=== PATIENT | female | born 1995 | race Caucasian/White ===

== ENCOUNTER 2017-02-15 22:27 | Emergency (ER) | payer SELFPAY ==
[~2017-02-15] VITALS: Ht 167.6 cm; Wt 59.0 kg
--- NOTE | 2017-02-15 22:51 | ED Lower Extremity ---
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 Nursing Sepsis Screen: No Definite Risk Source: patient History of Present Illness Time seen by provider: 22:44 Initial Comments C/O RIGHT KNEE PAIN AND SWELLING SINCE WAKING YESTERDAY MORNING NO KNOWN INJURY, BUT DID GO BOWLING THE NIGHT BEFORE NO PARESTHESIAS OR MOTOR DEFICITS NO PRIOR PROBLEMS WITH KNEE HAS NOT TAKEN ANYTHING FOR PAIN LMP 2 WEEKS AGO, NORMAL, NO CONTROL NO PCP Allergies and Home Medications Allergies Coded Allergies: No Known Drug Allergies (Unverified , 02/15/17) Home Medications Ibuprofen 800 Mg Tablet, 800 MG PO Q6H PRN for PAIN, #20 Prescribed by: JULIETTE WIGGINS on 02/15/17 2323 Tramadol HCl 50 Mg Tablet, 50 MG PO Q4H, #20 Prescribed by: JULIETTE WIGGINS on 02/15/17 2323 Constitutional: no symptoms reported : No LMP: Feb 01, 2017 Control/STD Prophylaxis: None Musculoskeletal: see HPI, joint pain, joint swelling Skin: no symptoms reported Psychiatric/Neurological: No Symptoms Reported Past Bpxucvj-Byjnzv-Fghxgn Hx Patient Social History Alcohol Use: Denies Use Recreational Drug Use: No Smoking Status: Never a Smoker Type Used: Cigarettes Recent Foreign Travel: No Contact w/Someone Who Travel: No Recent Infectious Disease Expo: No Surgeries HX Surgeries: No Respiratory Hx Respiratory Disorders: No Cardiovascular Hx Cardiac Disorders: No Neurological Hx Neurological Disorders: No Reproductive System : No Hx Reproductive Disorders: No Genitourinary Hx Genitourinary Disorders: No Gastrointestinal Hx Gastrointestinal Disorders: No Musculoskeletal Hx Musculoskeletal Disorders: No Endocrine Hx Endocrine Disorders: No HEENT HX ENT Disorders: No Cancer Hx Cancer: No Psychosocial Hx Psychiatric Problems: No Integumentary HX Skin/Integumentary Disorder: No Blood Transfusions Hx Blood Disorders: No Physical Exam Vital Signs Vital Sign - Last 12Hours 02/15/17 22:38 Temp 99.4 Pulse 89 Resp 18 B/P (MAP) 142/81 Pulse Ox 99 O2 Delivery Room Air Capillary Refill : Less Than 3 Seconds General Appearance: WD/WN, no apparent distress Hips: right hip normal inspection Legs: right leg normal inspection Knees: right knee bone tenderness, right knee joint effusion, right knee pain, right knee soft tissue tenderness, right knee swelling Ankles: right ankle normal inspection Feet: right foot normal inspection Neurologic/Tendon: normal sensation, normal motor functions, other (PULSES INTACT) 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, no motor/sensory deficits, alert, normal mood/affect, oriented x 3 Skin: normal color, warm/dry Splinting and Joint Reduction : Jagdish wrap: Yes Immobilizers: 24 inch Knee Ordered: Crutches Progress/Results/Core Measures Results/Orders My Orders Orders - FELICIANOJULIETTE K DO Knee, Right, 3 Views (02/15/17 22:43) Jagdish Bandage (02/15/17 23:15) Crutches (02/15/17 23:15) Knee Immobilizer (02/15/17 23:15) Rx-Ibuprofen (Rx-Motrin) (02/15/17 23:18) Rx-Tramadol Hcl (Rx-Ultram) (02/15/17 23:18) Vital Signs/I&O Vital Sign - Last 12Hours 02/15/17 22:38 Temp 99.4 Pulse 89 Resp 18 B/P (MAP) 142/81 Pulse Ox 99 O2 Delivery Room Air Blood Pressure Mean: 101 Diagnostic Imaging Comments XRAYS RIGHT KNEE--+ EFFUSION, NO BONY INJURY--PENDING RADIOLOGIST REVIEW Reviewed: Reviewed by Me Departure Impression Impression: Primary Impression: Strain of right knee Additional Impression: Knee effusion, right Disposition: 01 HOME, SELF-CARE Condition: Stable Departure-Patient Inst. Referrals: NO,LOCAL PHYSICIAN (PCP) Primary Care Physician MARISOL GALVAN MD Patient Instructions: Going Up and Down Curbs or Stairs With a Walker or Crutches, How to Use Crutches, Knee Immobilizer (DC), Knee Sprain (DC) Add. Discharge Instructions: JAGDISH WRAP, KNEE IMMOBILIZER AND CRUTCHES AT ALL TIMES ICE TO AREA AT 20 MINUTE INTERVALS ELEVATE RIGHT LEG MUCH POSSIBLE FOLLOW UP WITH DR. GALVAN IN 2-3 DAYS FOR FURTHER CARE All discharge instructions reviewed with patient and/or family. Voiced understanding. Scripts Tramadol HCl (Ultram) 50 Mg Tablet 50 MG PO Q4H, #20 TAB Prov: FELICIANO,JULIETTE K DO 02/15/17 Ibuprofen (Ibuprofen) 800 Mg Tablet 800 MG PO Q6H Y for PAIN, #20 TAB Prov: FELICIANO,JULIETTE K DO 02/15/17 JULIETTE WIGGINS DO February 15, 2017 22:51
[2017-02-15] MEDS ORDERED: RX-TRAMADOL 50 MG (ULTRAM) TAB PPK#4 PO STA (23:18)
[2017-02-15] MEDS ORDERED: RX-IBUPROFEN 600 MG (MOTRIN) TAB PPK#4 PO STA (23:18)
[2017-02-15] MEDS ORDERED: TRAM-42 PO (23:23)
[2017-02-15] MEDS ORDERED: IBUP-1780 PO (23:23)
[2017-02-15 23:34] VITALS: BP 137/80
--- NOTE | 2017-02-16 07:12 | Diagnostic Imaging Report ---
INDICATION: Pain COMPARISON: Unavailable TECHNIQUE: Three radiographs of the right knee dated 2016. FINDINGS: There is no acute fracture or dislocation. No destructive osseous process. Joint spaces are well-maintained. Prominent soft tissue density is noted within the suprapatellar region. No suspicious radiopaque foreign body. IMPRESSION: Prominent suprapatellar density. This may relate to a large joint effusion versus hematoma versus additional soft tissue mass. Recommend clinical correlation. If clinically indicated, MRI could help further evaluate this region. No acute osseous abnormality. Dictated by: Dictated on workstation # [id number]
== END 2017-02-15 23:34 | disposition home or self-care (01) ==
LOC: ER 22:33
DX: S86.811A Strain of other muscle(s) and tendon(s) at lower leg level, right leg, initial encounter (principal); M25.461 Effusion, right knee; X58.XXXA Exposure to other specified factors, initial encounter; Y99.8 Other external cause status
CPT/HCPCS: 73562; 99283